=== PATIENT | female | born 1970 | race Caucasian/White ===

== ENCOUNTER 2021-01-24 13:08 | Outpatient (REF) | payer OTHER, SELFPAY ==
[2021-01-24 14:13] LABS: Basophils Percent Auto 0.6 % (0-2); Eosinophils Absolute Auto 0.3 X10*3/uL (0.0-0.4); Eosinophils Percent Auto 3.7 % (0-4); Hematocrit 38.6 % (37-47); Hemoglobin 12.1 g/dl (12.0-16.0); Imm Gran Abs Auto 0.02 X10*3/uL (0.00-0.03); Imm Gran Pct Auto 0.3 % (0.0-0.4); Lymphocytes Absolute Auto 2.6 X10*3/uL (1.2-4.9); Lymphocytes Percent Auto 37.8 % (20-40); MANUAL DIFF FLAG NO; Mean Corpuscular HGB Conc 31.3 g/dl (31.0-35.0); Mean Corpuscular Hemoglobin 30.1 pg (27.0-33.0); Mean Platelet Volume 10.8 fL (9.4-12.3); Monocytes Absolute Auto 0.5 X10*3/uL (0.1-1.2); Monocytes Percent Auto 6.8 % (2-11); Neutrophils Absolute Auto 3.4 X10*3/uL (2.0-8.3); Neutrophils Percent Auto 50.8 % (45-73); Platelet Count 238 X10*3/uL (160-400); Red Blood Count 4.02 X10*6/uL (4.20-5.50); Red Cell Distribution Width 12.7 % (11.0-16.0); White Blood Count 6.7 X10*3/uL (4.8-10.8)
== END 2021-01-24 13:09 | disposition home or self-care (01) ==
LOC: HO.LAB 13:08
PROVIDERS: PCP Family Medicine; Visit Provider Family Medicine
DX: D50.9 Iron deficiency anemia, unspecified (principal)
CPT/HCPCS: 36415; 85025

== ENCOUNTER 2021-08-29 14:00 | Outpatient (REF) | payer OTHER, SELFPAY ==
[2021-08-29 14:11] LABS: MANUAL DIFF FLAG NO
[2021-08-29 14:41] LABS: Basophils Percent Auto 0.6 % (0-2); Eosinophils Absolute Auto 0.3 X10*3/uL (0.0-0.4); Eosinophils Percent Auto 4.6 % (0-4); Hemoglobin 12.3 g/dl (12.0-16.0); Imm Gran Abs Auto 0.02 X10*3/uL (0.00-0.03); Imm Gran Pct Auto 0.3 % (0.0-0.4); Lymphocytes Absolute Auto 2.2 X10*3/uL (1.2-4.9); Lymphocytes Percent Auto 31.4 % (20-40); Mean Corpuscular HGB Conc 32.4 g/dl (31.0-35.0); Mean Corpuscular Hemoglobin 30.4 pg (27.0-33.0); Mean Corpuscular Volume 94.1 fL (80.0-98.0); Mean Platelet Volume 10.8 fL (9.4-12.3); Monocytes Absolute Auto 0.6 X10*3/uL (0.1-1.2); Neutrophils Absolute Auto 3.8 x10*3/uL (2.0-8.3); Neutrophils Percent Auto 54.1 % (45-73); Platelet Count 222 X10*3/uL (160-400); Red Blood Count 4.04 X10*6/uL (4.20-5.50); Red Cell Distribution Width 12.6 % (11.0-16.0); White Blood Count 7.1 X10*3/uL (4.8-10.8)
[2021-08-29 15:08] LABS: Alanine Aminotransferase 23 U/L (0-31); Blood Urea Nitrogen 15 mg/dL (9-16); Estimated Glomerular Filt Rate > 60
== END 2021-08-29 14:01 | disposition home or self-care (01) ==
LOC: HO.LAB 14:00
PROVIDERS: PCP Family Medicine; Visit Provider Family Medicine
DX: D64.9 Anemia, unspecified (principal); E66.9 Obesity, unspecified
CPT/HCPCS: 36415; 82565; 84460; 84520; 85025

== ENCOUNTER 2021-09-12 05:04 | Emergency (ER) | payer OTHER, SELFPAY ==
--- NOTE | ~2021-09-12 | XR_ITS ---
EXAMINATION: XR PORTABLE CHEST CLINICAL INFORMATION: Cough. Shortness of breath. COMPARISON: None. TECHNIQUE: AP portable portable view of the chest FINDINGS: Lungs are clear. No consolidation, pneumothorax, or pleural effusion. Cardiac and mediastinal contours are normal. Pulmonary vasculature is unremarkable. Osseous structures are unremarkable. XR/XR chest 1V IMPRESSION: No acute cardiopulmonary findings
[2021-09-12 05:19] VITALS: BP 115/52; PULSE 74; RESP 20; TEMP 37.1; O2SAT 97; BMI 33.8
--- NOTE | 2021-09-12 05:41 | ED.URI ---
HPI - URI/Sore Throat General Chief Complaint: Upper Respiratory Symptoms Stated Complaint: asthma, trouble breathing Time Seen by Provider: 09/12/21 05:29 Source: patient Mode of arrival: ambulatory Limitations: no limitations History of Present Illness HPI Narrative: Patient comes to the emergency room complaining of asthma exacerbations. Patient states she has been having fever over the last couple of days, increased cough, patient has been using her inhaler every 2 hours. Patient states that she used her inhaler 1 hour prior to arrival. Patient complaining of diffuse body aches and generalized malaise. Related Data Previous Rx's Medication Instructions Recorded prednisone 50 mg tablet 50 mg PO DAILY #4 tab 09/12/21 Allergies Allergy/AdvReac Type Severity Reaction Status Date / Time Vkguttfln-Jklmhtyf-Jdx Allergy Unknown Unknown Uncoded 09/12/21 05:18 Sudafed Allergy Unknown Unknown Uncoded 09/12/21 05:18 Review of Systems Review of Systems: Constitutional : No Weight loss, complaining of fever, chills, generalized malaise and fatigue ENT/Mouth : No Hearing loss, No Ear Pain, No Nasal Congestion, No Sinus Pain, No Hoarseness, No sore throat, No Rhinorrhea, No Swallowing Difficulty Eyes: No Eye Pain, No Swelling, No Redness, No Foreign Body, No Discharge, No Vision Changes Cardiovascular : No Chest Pain, No SOB, No Dyspnea on Exertion, No Orthopnea, No Edema, No Palpitations Respiratory : Complaining of Cough, No Sputum, complaining of frequent asthma exacerbations, Wheezing Gastrointestinal : No Nausea, No Vomiting, No Diarrhea, No Constipation, No abdominal Pain, No Hematochezia, No Melena Genitourinary : no irregular bleeding, No Dysuria, No Urinary Frequency, No Hematuria, No Urinary Incontinence, No Urgency, No Flank Pain, No Urinary Flow Changes, No Hesitancy Musculoskeletal : No joint pain, No Myalgias, No Joint Swelling Skin : No Skin Lesions, No rash Neuro : No Weakness, No Numbness, No Paresthesias, No Loss of Consciousness, No Dizziness, No Headache Psych : No Anxiety/Panic, No Depression, No SI/HI/AH/VH, No Social Issues, Heme/Lymph: No Bruising, No Bleeding,No Lymphadenopathy Endocrine : No Polyuria, No Polydipsia, No Temperature Intolerance PMFSH Past Medical History Medical History Asthma History of positive PPD Surgical History History of foot surgery Hx of hemorrhoidectomy Hx of tubal ligation [place] teeth extracted Social History Social History Advance Directives: No Advance Directives Information Provided: Yes Patient : No Physical Exam Vital Signs: Vital Signs: Last Vital Signs Temp 98.8 F 09/12/21 05:19 Pulse 74 09/12/21 05:19 Resp 20 09/12/21 05:19 BP 115/52 L 09/12/21 05:19 Pulse Ox 97 09/12/21 05:19 Body Mass Index 33.8 Const: Other: Appearance: Alert. Oriented X3. No acute distress. Eyes: Pupils equal, round and reactive to light. ENT: Pharynx normal. Neck: Normal inspection. Neck supple. No lymph nodes noted. No crepitus CVS: Normal heart rate and rhythm. Pulses normal. Normal S1 and S2 Respiratory: No respiratory distress. Breath sounds normal. No Wheezing. No rales Abdomen: Soft and nontender. No rigidity. No distention. Skin: Skin warm and dry. Normal skin color. Normal skin turgor. Extremities: No lower extremity edema. No Lacerations. No Rash Neuro: Oriented X 3. No motor deficit. No sensory deficit. Moving all extermities. No slurred speech. Course Course Course Narrative: Patient was ambulated in the emergency room, oxygen saturation remained above 95% on room air, patient has no wheezing, no shortness of breath or chest pain. Patient received 1 IM dose of Solu-Medrol. No breathing treatments since patient was not wheezing and oxygen saturation was 98% on room air. Chest x-ray does not show any acute abnormalities, radiology report pending. And is being discharged MDM - URI/Sore Throat Lab Data Labs: Lab Results 09/12/21 Range/Units 05:30 Influenza Type A (PCR) NEGATIVE (Negative) Influenza Type B (PCR) NEGATIVE (Negative) RSV RNA Qual (PCR) NEGATIVE (Negative) SARS-CoV-2 RNA (RT-PCR) NEGATIVE (Negative) Discharge Plan Discharge Clinical Impression: Asthma Qualifiers: Asthma severity: unspecified severity Asthma persistence: unspecified Asthma complication type: unspecified Qualified Code(s): J45.909 - Unspecified asthma, uncomplicated Patient Disposition: Home, Self-Care Instructions: Asthma (ED) Additional Instructions: Please follow-up with your primary care physician tomorrow. If you have any worsening or new symptoms, please return to the emergency room or call 911 Prescriptions: New prednisone 50 mg tablet 50 mg PO DAILY Qty: 4 RF: 0
[2021-09-12] MEDS: methylPREDNISolone Sod Succ 125 MG/2 ML VIAL 60 MG IM (05:59)
[2021-09-12 06:13] LABS: Influenza A PCR NEGATIVE (Negative); Influenza B PCR NEGATIVE (Negative); Resp Syncy Virus RNA Qual PCR NEGATIVE (Negative); SARS COV2 PCR INHOUSE NEGATIVE (Negative)
== END 2021-09-12 07:24 | disposition home or self-care (01) ==
PROVIDERS: Emergency Provider Emergency Medicine
DX: J45.909 Unspecified asthma, uncomplicated (principal); Z20.822 Contact with and (suspected) exposure to COVID-19; M79.10 Myalgia, unspecified site
CPT/HCPCS: 0241U; 36415; 71045; 96372; 99283; 99284; J2930

== ENCOUNTER 2021-10-19 09:10 | Day surgery (SDC) | payer OTHER, SELFPAY ==
--- NOTE | 2021-09-14 08:53 | HO.ANESPROP2 ---
HPI - Anesthesia Eval Consult details Narrative: 51yo F for Colonoscopy PMFSH Past Medical History Medical History Asthma History of positive PPD Surgical History Surgical History History of foot surgery Hx of hemorrhoidectomy Hx of tubal ligation [place] teeth extracted Social History Social History Advance Directives: No Advance Directives Information Provided: Yes Patient : No Meds Allergies Allergy/AdvReac Type Severity Reaction Status Date / Time Lxprhclnk-Wmuclous-Vpf Allergy Unknown Unknown Uncoded 09/12/21 05:18 Sudafed Allergy Unknown Unknown Uncoded 09/12/21 05:18 Exam Exam Date and Time: September 14, 2021 0853 Pertinent Lab Results Pertinent Lab Results: Laboratory Tests 06/10/19 08/29/21 08/29/21 13:01 14:09 14:09 WBC 7.1 Hgb 12.3 Hct 38.0 Plt Count 222 Sodium 137 Potassium 4.0 Chloride 105 BUN 15 Creatinine 0.77 Narrative Narrative: XR chest 1V 08/2021 IMPRESSION: No acute cardiopulmonary findings Assessment and Plan Assessment Anesthesia Assessment: Chart Reviewed
[2021-10-04 11:25] VITALS: BMI 33.7
[2021-10-19 09:38] VITALS: BP 119/79; PULSE 75; RESP 16; TEMP 36.6; O2SAT 95
--- NOTE | 2021-10-19 09:44 | P.CONAN_ITS ---
[facility] Past Medical History Medical History Asthma History of positive PPD IBS (irritable bowel syndrome) Seasonal allergies Surgical History Surgical History History of foot surgery Hx of hemorrhoidectomy Hx of tubal ligation [place] teeth extracted History of Problems with Anesthesia: No Social History Social History Patient Tobacco Use Status: Never used Tobacco Use of substances other than those prescribed or required for medical reasons: No Are you DNR?: No Advance Directives: No Advance Directives Information Provided: Yes Advance Directives on File: No Recently lost weight without trying: No Patient : No FDLMP: 09/29/2021 : No Poor oral hygiene: No Meds Allergies Allergy/AdvReac Type Severity Reaction Status Date / Time latex Allergy Intermediate Rash Verified 10/04/21 14:25 Iawgziora-Mxjhhdso-Ded Allergy Intermediate Shakiness Uncoded 10/04/21 14:25 Sudafed Allergy Intermediate Shakiness Uncoded 10/04/21 14:25 Active Medications: Current Medications Sodium Biphosphate/Sodium Phosphate (Sodium Phosphate,[place]-Dibasic 133 Ml Enema) 133 ml [place] ONCE PRN PRN Reason: Poor Colonoscopy Prep Results Home Medications Medication Instructions Recorded Confirmed Last Taken Type Flovent 10/04/21 10/04/21 Unknown History loratadine 10 mg tablet (Claritin) 10 mg PO DAILY 10/04/21 10/04/21 Unknown History omeprazole 40 mg capsule,delayed 1 cap PO QPM 10/04/21 10/04/21 Unknown History release Exam Exam Date and Time: October 19, 2021 0944 Height,Weight and Vital Signs: Height 5 ft 4 in Weight 89.358 kg Last Vital Signs Temp 97.8 F 10/19/21 09:38 Pulse 75 10/19/21 09:38 Resp 16 10/19/21 09:38 BP 119/79 10/19/21 09:38 Pulse Ox 95 10/19/21 09:38 Airway Mallampati Class: II TM Dist: >3cm Neck ROM: Full Loose/Missing/Broken Teeth: No Heart: RRR Lungs: CTA Assessment and Plan Assessment Anesthesia Assessment: Anesthesia Plan Discussed and Chart Reviewed Final Anesthetic Review History of Problems with Anesthesia: No NPO: Yes ASA Class: II Final Preanesthetic Review: Meds/Allgs Chart Reviewed, Consent Obtained/Reviewed and Anes Risks/Benef Reviewed Patient Risk: Low Procedure Risk: Low Anesthetic Plan Anesthetic Plan: MAC: Disposition: Standard PACU
[2021-10-19] MEDS: Lactated Ringers 1,000 ML 50 ML IVCONT (10:33)
[2021-10-19 11:21] VITALS: BP 102/64; PULSE 67; RESP 18; TEMP 36.6; O2SAT 97
--- NOTE | 2021-10-19 11:24 | P.BOP_ITS ---
Brief Operative Note Date of Service: 10/19/21 Pre-op diagnosis: Screening Post-op diagnosis: other (Mild sigmoid diverticulosis, Internal hemorrhoids) Procedure: Colonoscopy to the cecum and TI Surgeon: Art Alvares Anesthesia: MAC Was an [employer] used for this Procedure?: No Estimated blood loss (mL): 0 Pathology: none sent Condition: stable Disposition: PACU
[2021-10-19 11:36] VITALS: BP 107/60; PULSE 60; RESP 16; O2SAT 97
[2021-10-19 11:46] VITALS: BP 115/77; PULSE 63; RESP 16; TEMP 36.6; O2SAT 98
--- NOTE | 2021-10-19 12:16 | OP_ITS ---
SURGEON: Art Alvares MD INDICATIONS: The patient presents for evaluation of colorectal cancer screening. Full consent has been obtained from her for this, including risks of bleeding and perforation. PREOPERATIVE DIAGNOSIS: Colorectal cancer screening. POSTOPERATIVE DIAGNOSIS: PROCEDURE PERFORMED: Colonoscopy of the cecum and terminal ileum. ESTIMATED BLOOD LOSS: COMPLICATIONS: ANESTHESIA: Monitored anesthesia care. ASSISTANTS: SPECIMENS: POSTOPERATIVE DIAGNOSES: Colorectal cancer screening, mild sigmoid diverticulosis, and internal hemorrhoids. DESCRIPTION OF PROCEDURE: The patient was placed in the left lateral decubitus position. The digital rectal exam revealed no abnormalities. The Olympus video pediatric colonoscope was entered into the rectum and advanced easily to the cecum. Once in the cecum, I did identify normal-appearing cecal pouch with appendiceal orifice and a normal-appearing ileocecal valve. The terminal ileum was cannulated and appeared normal. The scope was withdrawn back in the colon. The entire cecum and ileocecal valve appeared normal. The scope was slowly withdrawn assessing all mucosal surfaces carefully. Preparation was excellent. I did not visualize any sign of polyps, colitis, or angiodysplasia. There were occasional diverticula noted in the sigmoid colon. In the rectum, scope was retroflexed visualizing internal hemorrhoids, but no other pathology. The rectal mucosa appeared normal. The scope was straightened and withdrawn from the patient. She tolerated the procedure well and was returned to the recovery area in stable condition. IMPRESSION: 1. Mild sigmoid diverticulosis. 2. Internal hemorrhoids. PLAN: Given the patient's negative colonoscopy and no family history of colorectal cancer, I would recommend a repeat colonoscopy in 10 years for further screening. She will otherwise see me on a p.r.n. basis. Art Alvares MD RMLeif/BETTY / [id number]
== END 2021-10-19 12:09 | disposition home or self-care (01) ==
PROVIDERS: Visit Provider Internal Medicine
PROC: 0DJD8ZZ Inspection of Lower Intestinal Tract, Via Natural or Artificial Opening Endoscopic (ICD-10-PCS; CPT 45378; principal; 2021-10-19 10:10)
DX: Z12.11 Encounter for screening for malignant neoplasm of colon (principal); K57.30 Diverticulosis of large intestine without perforation or abscess without bleeding; K64.8 Other hemorrhoids; K58.2 Mixed irritable bowel syndrome; J30.2 Other seasonal allergic rhinitis; R32 Unspecified urinary incontinence; Z79.899 Other long term (current) drug therapy
CPT/HCPCS: 45378

== ENCOUNTER 2025-09-07 22:05 | Emergency (ER) | payer OTHER, SELFPAY ==
--- NOTE | ~2025-09-07 | XR_ITS ---
CLINICAL HISTORY: sob 1 view chest x-ray Comparison: None provided Findings: Lungs are clear without acute infiltrates. No pneumothorax. Heart size normal. No acute bony abnormalities. Impression: No acute processes This document has been electronically signed by: Jagdish Shine MD on 09/07/2025 23:19:50
[2025-09-07 22:15] VITALS: BP 160/70; PULSE 108; RESP 24; TEMP 39; O2SAT 95; BMI 30.4
[2025-09-07 22:42] LABS: MANUAL DIFF FLAG NO
[2025-09-07 22:43] LABS: Hematocrit 34.0 % (37.0-47.0); Hemoglobin 10.9 g/dl (12.0-16.0); Imm Gran Abs Auto 0.02 X10*3/uL (0.00-0.03); Imm Gran Pct Auto 0.2 % (0.0-0.4); Lymphocytes Absolute Auto 0.7 X10*3/uL (1.2-4.9); Mean Corpuscular HGB Conc 32.1 g/dl (31.0-35.0); Mean Corpuscular Hemoglobin 29.9 pg (27.0-33.0); Mean Corpuscular Volume 93.4 fL (80.0-98.0); NRBC Abs Auto 0.000 X10*3/uL (0.0-0.012); NRBC Pct Auto 0.0 /100WBC (0.0-0.2); Platelet Count 186 X10*3/uL (160-400); Red Blood Count 3.64 X10*6/uL (4.20-5.50); White Blood Count 8.1 X10*3/uL (4.8-10.8)
[2025-09-07 22:51] LABS: IDNOW Serial# 6674DD1D; Strep A Nucleic Acid Negative (Negative)
[2025-09-07 22:59] LABS: Alanine Aminotransferase 47 U/L (0-31); Albumin Level 4.6 g/dL (3.5-5.0); Alkaline Phosphatase 104 U/L (39-117); Anion Gap 14 (12-20); Aspartate Amino Transferase 43 U/L (5-31); Blood Urea Nitrogen 20 mg/dL (9-16); Calcium 9.7 mg/dL (8.4-10.2); Carbon Dioxide 23 mmol/L (22-29); Chloride 108 mmol/L (96-108); Creatinine Clr Calc Pharmacy 92.4; Estimated Glomerular Filt Rate > 60; Potassium 3.8 mmol/L (3.3-5.1); Sodium 141 mmol/L (135-145); Total Protein 7.6 g/dL (6.5-8.0)
--- NOTE | 2025-09-07 23:06 | MHC.EDTECH ---
@23:06 Per RN hold off on drawing 2nd set off [employer]
[2025-09-07 23:08] VITALS: BP 146/85; PULSE 106; RESP 20; TEMP 39.4; O2SAT 96
[2025-09-07 23:20] LABS: Resp Syncy Virus RNA Qual PCR NEGATIVE (Negative); SARS COV2 PCR INHOUSE NEGATIVE (Negative)
--- NOTE | 2025-09-08 00:14 | ED.GENADULT ---
HPI - General Adult General Chief complaint: General Medical Stated complaint: General Medical Time Seen by Provider: 09/07/25 22:55 Source: patient and family Mode of arrival: ambulatory Limitations: no limitations History of Present Illness ED Provider: Dr. Joanna Nino HPI narrative: 55-year-old female with history of CVA on aspirin and Plavix presenting with reported fevers that began immediately prior to arrival. Patient had been feeling well earlier in the day though she has been around multiple other sick children throughout the day. Other people are sick with upper respiratory infection type symptoms. Patient denies having any significant cough or sinus congestion. She does have seasonal allergies and takes allergy medications for this. Temperature as high as 103?. Admits to associated headache but no vision changes or neck stiffness. No skin rashes. Cough is dry. Patient admits that she was recently diagnosed with a kidney stone in [place] but can not remember if she has passed it or not. She has no urinary symptoms today. Related Data Home Medications ?Medication ?Instructions ?Recorded ?Confirmed Flovent 10/04/21 10/04/21 loratadine 10 mg tablet (Claritin) 10 mg PO DAILY 10/04/21 10/04/21 omeprazole 40 mg capsule,delayed 1 cap PO QPM 10/04/21 10/04/21 release Previous Rx's ?Medication ?Instructions ?Recorded albuterol sulfate 90 mcg/actuation 2 puff inhalation Q4-6H PRN 09/12/21 aerosol inhaler shortness of breath or wheezing #6.7 grams prednisone 50 mg tablet 50 mg PO DAILY #4 tabs 09/12/21 cephalexin 500 mg capsule 500 mg PO QID 7 days #28 caps 09/08/25 ondansetron 4 mg disintegrating 4 mg PO Q8H PRN nausea and 09/08/25 tablet vomiting #10 tabs Allergies Allergy/AdvReac Type Severity Reaction Status Date / Time latex Allergy Intermediate Rash Verified 09/07/25 22:21 Uwhiesevt-Qzzsvrnh-Nme Allergy Intermediate Shakiness Uncoded 10/04/21 14:25 Sudafed Allergy Intermediate Shakiness Uncoded 10/04/21 14:25 PMFSH Past Medical History Medical History Asthma History of positive PPD IBS (irritable bowel syndrome) Seasonal allergies Surgical History History of foot surgery Hx of hemorrhoidectomy Hx of tubal ligation [place] teeth extracted Social History Social History Patient Tobacco Use Status: Never used Tobacco Smoked in Last 30 Days: Yes Use of substances other than those prescribed or required for medical reasons: No Advance Directives: No Advance Directives Information Provided: No Do you have a plan to hurt others: No Plan Patient : No Physical Exam ED Exam Exam: GENERAL: Ill-Appearing, appears uncomfortable. SKIN: Normal skin color for ethnicity, warm, dry, no rashes noted. HEENT:? Normocephalic, atraumatic, no stridor, dry mucous membranes, dentition intact, EOMI. NECK: Soft, supple, full ROM, midline structures nontender, no step-offs, no deformities, no lymphadenopathy. CHEST: Heart regular tachycardia, no murmurs, symmetric chest rise and fall. PULMONARY: Clear to auscultation bilaterally, diminished at the bases, no labored breathing, no wheezes/rhales/rhonchi. ABDOMINAL: Soft, nondistended, nontender, positive bowel sounds in all quadrants. : Deferred. MUSCULOSKELETAL: Normal tone, full range of motion, no deformities, no peripheral edema. NEURO: Alert and oriented x3, CN II through XII intact, equal strength and sensation bilateral upper and lower extremities, no focal neurologic deficits.? PSYCHIATRIC: Flat affect, fluid speech, good eye contact and appropriate demeanor. Vital Signs: Vital Signs - 24 hr 09/07/25 22:15 09/07/25 23:08 09/08/25 00:57 Temperature 102.2 F H 103 F H 99.4 F Pulse Rate 108 H 106 H 102 H Respiratory Rate 24 H 20 20 Blood Pressure 160/70 H 146/85 H 137/66 Pulse Oximetry 95 96 95 Oxygen Delivery Method Room Air 09/08/25 01:03 Temperature 99.4 F Pulse Rate 99 Respiratory Rate 20 Blood Pressure Pulse Oximetry Oxygen Delivery Method BMI result Body Mass Index 30.4 Medications Administered Discontinued Medications Generic Name Dose Route Start Last Admin Trade Name Freq PRN Reason Stop Dose Admin Acetaminophen 975 mg 09/07/25 23:18 09/07/25 23:21 Acetaminophen 325 Mg Tablet PO 09/07/25 23:19 975 mg ONCE ONE Administration Oxycodone HCl 5 mg 09/08/25 00:30 09/08/25 01:04 Oxycodone Hcl Immed Release 5 Mg Tablet PO 09/08/25 00:31 5 mg ONCE ONE Administration Medical Decision Making Medical Decision Making [facility] Narrative: Patient presents with complaints of fever. Differential diagnosis is incredibly broad but SBI, meningitis, sepsis, serious skin infection, pyelonephritis, UTI, pneumonia or other emergent etiologies certainly considered.? Less emergent diagnoses such as viral infection also considered.? This patient is non toxic appearing. No evidence of meningitis on exam. No significant elevation of white blood cell count or evidence of bandemia. She is defervescing appropriately after Tylenol. Headache improved with oxycodone. Urinalysis is positive for infection. We will treat with Keflex. Discussed importance of follow up as well as strict return precautions with the patient. She understands and agrees with plan for discharge. Discharged home in stable condition. Differential Diagnosis Differential Diagnoses: The differential diagnosis associated with the presentation includes Admission/Observation Consideration of admission/observation: Escalation of care including admission/observation considered Lab Data [facility] Lab Attestation statement: I reviewed the patient's lab results. 09/07/25 22:34 09/07/25 22:34 Labs: Lab Results 09/07/25 09/08/25 Range/Units 22:34 01:01 WBC 8.1 (4.8-10.8) X10*3/uL RBC 3.64 L (4.20-5.50) X10*6/uL Hgb 10.9 L (12.0-16.0) g/dl Hct 34.0 L (37.0-47.0) % MCV 93.4 (80.0-98.0) fL MCH 29.9 (27.0-33.0) pg MCHC 32.1 (31.0-35.0) g/dl RDW 12.5 (11.0-16.0) % Plt Count 186 (160-400) X10*3/uL MPV 9.8 (9.4-12.3) fL Immature Gran % (Auto) 0.2 (0.0-0.4) % Neut % (Auto) 87.6 H (45-73) % Lymph % (Auto) 9.1 L (20-40) % [place] % (Auto) 1.4 L (2-11) % Eos % (Auto) 1.5 (0-4) % Baso % (Auto) 0.2 (0-2) % Lymph # (Auto) 0.7 L (1.2-4.9) X10*3/uL [place] # (Auto) 0.1 (0.1-1.2) X10*3/uL Eos # (Auto) 0.1 (0.0-0.4) X10*3/uL Baso # (Auto) 0.0 (0.0-0.2) X10*3/uL Abs Immat Gran (auto) 0.02 (0.00-0.03) X10*3/uL Absolute Neuts (auto) 7.1 (2.0-8.3) x10*3/uL Absolute Nucleated RBC 0.000 (0.0-0.012) X10*3/uL Nucleated RBC % (auto) 0.0 (0.0-0.2) /100WBC Sodium 141 (135-145) mmol/L Potassium 3.8 (3.3-5.1) mmol/L Chloride 108 (96-108) mmol/L Carbon Dioxide 23 (22-29) mmol/L Anion Gap 14 (12-20) BUN 20 H (9-16) mg/dL Creatinine 0.82 (0.5-1.4) mg/dL Estim Creat Clear Calc 92.4 Estimated GFR > 60 Random Glucose 121 H (60-115) mg/dL Lactic Acid 1.2 (0.5-2.0) mmol/L Calcium 9.7 (8.4-10.2) mg/dL Total Bilirubin 0.8 (0.0-1.0) mg/dL AST 43 H (5-31) U/L ALT 47 H (0-31) U/L Alkaline Phosphatase 104 (39-117) U/L Total Protein 7.6 (6.5-8.0) g/dL Albumin 4.6 (3.5-5.0) g/dL Urine Color Yellow Urine Appearance Clear Urine pH 5.0 (5.0-9.0) Ur Specific [place] 1.015 (1.005-1.025) Urine Protein Negative (Neg-Trace) mg/dL Urine Glucose (UA) Negative (Negative) mg/dL Urine Ketones Negative (Negative) mg/dL Urine Blood Trace H (Negative) Urine Nitrite Positive H (Negative) Ur Leukocyte Esterase Moderate (2+) H (Negative) Urine RBC 0-2 (0-2) /HPF Urine WBC 21-50 H (0-5) /HPF Ur Squamous Epith Cells 0-2 (0-2) /HPF Urine Bacteria 4+ (None Seen) Hyaline Casts 0-2 (0-2) /LPF Influenza Type A (PCR) NEGATIVE (Negative) Influenza Type B (PCR) NEGATIVE (Negative) RSV RNA Qual (PCR) NEGATIVE (Negative) SARS-CoV-2 RNA (RT-PCR) NEGATIVE (Negative) S. pyogenes GrpA BRYCE Negative (Negative) Independent Interpretation Interpretation: My independent interpretation of the chest x-ray reveals no consolidations, pulmonary edema, pleural effusion, pneumothorax, obvious bony abnormalities. Radiology Impression Discussion of test interpretation with radiology: I have reviewed the radiologist's reading. Independent Historian Clinical information obtained from an independent historian. History obtained from or confirmed by: Spouse External Record Review External record reviewed: Inpatient record Prescription Management I considered prescription management with: Antibiotic Chronic Conditions Patient?s care impacted by: Other (CVA) Discharge Plan Discharge Clinical Impression: Acute febrile illness, UTI (urinary tract infection) Patient Disposition: Home, Self-Care Instructions: Urinary Tract Infection in Women (ED), Fever in Adults (ED) Additional Instructions: Take your antibiotic as prescribed until the course is completed. Do not stop this medication early if you start to feel better. Return to the emergency department with any new or worsening symptoms including: Worsening pain, fevers greater than 100? despite antibiotic treatment, vomiting, or any new symptom that concerns you. Call 911 with any medical emergency. Prescriptions: New cephalexin 500 mg capsule 500 mg PO QID 7 Days Qty: 28 0RF ondansetron 4 mg tablet,disintegrating 4 mg PO Q8H PRN (Reason: nausea and vomiting) Qty: 10 0RF No Action prednisone 50 mg tablet 50 mg PO DAILY Qty: 4 0RF albuterol sulfate 90 mcg/actuation HFA aerosol inhaler 2 puff inhalation Q4-6H PRN (Reason: shortness of breath or wheezing) Qty: 6.7 0RF omeprazole 40 mg capsule,delayed release(DR/EC) 1 cap PO QPM loratadine [Claritin] 10 mg Tablet 10 mg PO DAILY Flovent Print Language: Bulgarian
[2025-09-08 00:57] VITALS: BP 137/66; PULSE 102; RESP 20; TEMP 37.4; O2SAT 95
[2025-09-08 01:03] VITALS: PULSE 99; RESP 20; TEMP 37.4
[2025-09-08] MEDS: oxyCODONE HCl Immed Release 5 MG TABLET PO (01:04)
[2025-09-08 01:17] LABS: Appearance Urine Clear; Glucose Urine UA Negative (Negative); PH 5.0 (5.0-9.0); Specific Gravity - Urine 1.015 (1.005-1.025); UMIC TRIGGER UACC YES
[2025-09-08 01:22] LABS: UACC Culture Trigger YES
[2025-09-08 02:16] VITALS: BP 137/66; PULSE 99; RESP 20; TEMP 37.4; O2SAT 94
== END 2025-09-08 02:17 | disposition home or self-care (01) ==
PROVIDERS: Emergency Provider Emergency Medicine
DX: N39.0 Urinary tract infection, site not specified (principal); R50.9 Fever, unspecified; Z03.818 Encounter for observation for suspected exposure to other biological agents ruled out; R06.02 Shortness of breath; J45.909 Unspecified asthma, uncomplicated
CPT/HCPCS: 36415; 71045; 80053; 81001; 83605; 85025; 87040; 87077; 87086; 87088; 87186; 87205; 87637; 87651; 99283; 99284

== ENCOUNTER → 2025-09-07 22:45 | Outpatient (BNV) | payer OTHER, SELFPAY | PROVIDERS: Emergency Provider Emergency Medicine; Visit Provider Radiology Diagnostic Radiology | DX: R06.02 Shortness of breath (principal) | CPT/HCPCS: 71045 ==

== ENCOUNTER 2025-09-08 11:14 | Inpatient (IN) | payer MEDICAID, SELFPAY ==
--- NOTE | ~2025-09-08 | CT_ITS ---
EXAMINATION: CT ABDOMEN AND PELVIS WITHOUT CONTRAST CLINICAL INFORMATION: Right flank pain COMPARISON: June 02, 2014. TECHNIQUE: Multidetector volumetric imaging was performed from the superior aspect of the liver through the pubic symphysis. Sagittal and coronal reformatted images were obtained on the technologist's workstation. This CT examination was performed using dose optimization techniques as appropriate, variously including the following: *Automated exposure control *Adjustment of mA and/or kV according to patient size (this includes techniques or standardized protocols for targeted exams where dose is matched to indication/reason for exam; i.e. extremities or head) *Use of iterative reconstruction technique DLP: 680 mGy-cm FINDINGS: Inadequate evaluation of the intra-abdominal organs and vascular structures due to lack of IV contrast. LUNG BASES: No acute airspace disease or discrete pulmonary nodules. LIVER, GALLBLADDER, AND BILIARY TREE: Liver measures 15 cm. There is a subtle 2 cm hypodensity in the dome right hepatic lobe. Gallbladder is nondistended. No pericholecystic fluid collection or gallbladder wall thickening. No intrahepatic or extrahepatic biliary ductal dilatation. PANCREAS: No peripancreatic fluid collections. SPLEEN: 10 cm. ADRENAL GLANDS: No nodular lesions KIDNEYS AND URETERS: No hydronephrosis. Less than 1 mm calculi in both pelvicalyceal systems. No dilatation of the ureters. BLADDER: Fluid-filled. GASTROINTESTINAL TRACT: Appendix is normal. No intestinal obstruction pattern. No pneumatosis intestinalis. No pneumoperitoneum. No ascites. Redundant sigmoid colon. Abundant food contents in the stomach. ABDOMINAL WALL: No gross hernia, umbilical. LYMPH NODES: Prominent, inguinal, periceliac, retroperitoneum and mesentery, nonspecific. VASCULAR: Small calcified plaques. No aneurysm, aorta. PELVIC VISCERA: Inadequate evaluation with heterogeneous nodular morphology pattern and question subserosal 2 cm fibroid to the right of the pelvis. Probable status post tubal ligation.. OSSEOUS STRUCTURES: Multilevel thoracolumbar spondylosis pronounced at L4-5 and to a lesser extent L5-S1. Sclerosis and the sacroiliac joints. Degenerative changes, mild to moderate both coxofemoral joints. CT/CT abdomen pelvis wo IV con IMPRESSION: Bilateral nonobstructing nephrolithiasis. Probable uterine fibroids. Nonspecific prominent lymph nodes. Spondylosis, L4-5 and L5-S1.. Fleischner guidelines were followed. Electronically signed by: Luc Pierce MD 09/08/2025 01:03 PM [facility]
[2025-09-08 11:21] VITALS: BP 113/65; PULSE 77; RESP 18; TEMP 36.8; O2SAT 97; BMI 34.3
--- NOTE | 2025-09-08 11:27 | ED.GENADULT ---
HPI - General Adult General Chief complaint: General Medical Stated complaint: Urinary Symptoms Time Seen by Provider: 09/08/25 11:18 Source: patient and old records reviewed Mode of arrival: ambulatory Limitations: no limitations History of Present Illness ED Provider: ALBERT CALDERON narrative: 55-year-old female with past medical history of asthma, GERD, August 22 was seen for left-sided renal colic in [place] but no procedures were done. She is here traveling as she lives in [place] and was visiting family in [place]. who was just seen and treated in our facility with cephalexin for positive UTI. She had presented with fevers/rigors up to 103. Her urine was grossly positive. She also had chest x-ray that was normal. She does have right flank pain as well as urinary symptoms. I called her after I was notified by the lab that she had 10/22 gram negative rods. I instructed her to return for IV antibiotics and admission to the hospital. She was supposed to fly back to [place] at 14:30 today. She notes she started to develop right flank pain as well. She has not had a fever this morning. She did take her Keflex and at 10:00. complaint: Positive blood culture Onset (ago): day(s) (One) Location: right Radiation: non-radiation Severity: moderate Quality: aching Pain Consistency: constant Relieving factors: none Exacerbating factors: none Associated symptoms: malaise Treatments prior to arrival: other Related Data Home Medications ?Medication ?Instructions ?Recorded ?Confirmed Flovent 10/04/21 10/04/21 loratadine 10 mg tablet (Claritin) 10 mg PO DAILY 10/04/21 10/04/21 omeprazole 40 mg capsule,delayed 1 cap PO QPM 10/04/21 10/04/21 release Previous Rx's ?Medication ?Instructions ?Recorded albuterol sulfate 90 mcg/actuation 2 puff inhalation Q4-6H PRN 09/12/21 aerosol inhaler shortness of breath or wheezing #6.7 grams prednisone 50 mg tablet 50 mg PO DAILY #4 tabs 09/12/21 cephalexin 500 mg capsule 500 mg PO QID 7 days #28 caps 09/08/25 ondansetron 4 mg disintegrating 4 mg PO Q8H PRN nausea and 09/08/25 tablet vomiting #10 tabs Allergies Allergy/AdvReac Type Severity Reaction Status Date / Time latex Allergy Intermediate Rash Verified 09/08/25 11:24 Btzzlskpf-Miwpkglo-Nol Allergy Intermediate Shakiness Uncoded 09/08/25 11:24 Sudafed Allergy Intermediate Shakiness Uncoded 09/08/25 11:24 Review of Systems Review of Systems: Constitutional : Positive Fever, No Chills, positive Fatigue ENT/Mouth : No sore throat, No Rhinorrhea Eyes: No Eye Pain, No Swelling, No Redness Cardiovascular : No Chest Pain, No SOB, No Dyspnea on Exertion Respiratory : No Cough, No Sputum Gastrointestinal : No Nausea, No Vomiting, No Diarrhea, No abdominal Pain, positive flank pain Genitourinary : Positive Dysuria, positive Urinary Frequency, No Hematuria, Musculoskeletal : No joint pain, No Myalgias, No Joint Swelling Skin : No Skin Lesions, No rash All other systems reviewed and are negative [facility] Past Medical History Attestation statement: The following information was validated with the patient. Source: old records reviewed Medical History Seasonal allergies IBS (irritable bowel syndrome) History of positive PPD Asthma Surgical History History of foot surgery [place] teeth extracted Hx of hemorrhoidectomy Hx of tubal ligation Social History Social History Patient Tobacco Use Status: Never used Tobacco Advance Directives: No Advance Directives Information Provided: Yes Do you have a plan to hurt others: No Plan Physical Exam ED Vital Signs: Vital Signs - 24 hr 09/08/25 11:21 Temperature 98.3 F Pulse Rate 77 Respiratory Rate 18 Blood Pressure 113/65 Pulse Oximetry 97 Oxygen Delivery Method Room Air BMI result Body Mass Index 34.3 Appearance: Alert. Oriented X3. No acute distress. Eyes: Pupils equal, round and reactive to light. ENT: Pharynx normal. Neck: Normal inspection. Neck supple. CVS: Normal heart rate and rhythm. Pulses normal. Respiratory: No respiratory distress. Breath sounds normal. Abdomen: Soft and nontender. Skin: Skin warm and dry. Normal skin color. Normal skin turgor. Extremities: No lower extremity edema. No calf ttp Neuro: Oriented X 3. No motor deficit. No sensory deficit. CN2-12 intact Medications Administered Discontinued Medications Generic Name Dose Route Start Last Admin Trade Name Jose PRN Reason Stop Dose Admin Ceftriaxone Sodium 2 gm/ 50 mls @ 100 mls/hr 09/08/25 11:19 09/08/25 12:43 Sodium Chloride IV 09/08/25 11:48 Infused ONCE ONE Infusion Ketorolac Tromethamine 15 mg 09/08/25 12:23 09/08/25 12:55 Ketorolac Tromethamine 15 Mg/Ml Vial IVPUSH 09/08/25 12:24 15 mg ONCE ONE Administration Medical Decision Making Medical Decision Making [facility] Narrative: 55-year-old female with past medical history of asthma, GERD, August 22 was seen for left-sided renal colic in [place] who presents with Gram-negative rods in blood culture after visit yesterday. She has also developed right-sided flank pain with history of renal colic and past so that was on the left side. At this time I have repeated labs, including cultures, we will order CT scan for renal colic. I have started her on 2 g IV ceftriaxone. I plan to admit to the hospital given bacteremia. The family did ask that I write a letter that she is unable to travel which I have already handed to her spouse. Differential Diagnosis Differential Diagnoses: The differential diagnosis associated with the presentation includes Renal colic, UTI, bacteremia Admission/Observation Consideration of admission/observation: Escalation of care including admission/observation considered Given positive blood cultures will admit overnight for culture surveillance and IV antibiotic Consult Healthcare Provider Management of the patient was discussed with: Hospitalist (Will admit) Lab Data [facility] Lab Attestation statement: I reviewed the patient's lab results. 09/08/25 11:45 09/08/25 11:45 Labs: Lab Results 09/08/25 Range/Units 11:45 WBC 11.3 H (4.8-10.8) X10*3/uL RBC 3.61 L (4.20-5.50) X10*6/uL Hgb 10.9 L (12.0-16.0) g/dl Hct 33.6 L (37.0-47.0) % MCV 93.1 (80.0-98.0) fL MCH 30.2 (27.0-33.0) pg MCHC 32.4 (31.0-35.0) g/dl RDW 12.8 (11.0-16.0) % Plt Count 218 (160-400) X10*3/uL MPV 10.4 (9.4-12.3) fL Immature Gran % (Auto) 0.3 (0.0-0.4) % Neut % (Auto) 74.9 H (45-73) % Lymph % (Auto) 17.4 L (20-40) % Pope % (Auto) 5.8 (2-11) % Eos % (Auto) 1.2 (0-4) % Baso % (Auto) 0.4 (0-2) % Lymph # (Auto) 2.0 (1.2-4.9) X10*3/uL Pope # (Auto) 0.7 (0.1-1.2) X10*3/uL Eos # (Auto) 0.1 (0.0-0.4) X10*3/uL Baso # (Auto) 0.1 (0.0-0.2) X10*3/uL Abs Immat Gran (auto) 0.03 (0.00-0.03) X10*3/uL Absolute Neuts (auto) 8.5 H (2.0-8.3) x10*3/uL Absolute Nucleated RBC 0.000 (0.0-0.012) X10*3/uL Nucleated RBC % (auto) 0.0 (0.0-0.2) /100WBC Sodium 138 (135-145) mmol/L Potassium 3.4 (3.3-5.1) mmol/L Chloride 109 H (96-108) mmol/L Carbon Dioxide 23 (22-29) mmol/L Anion Gap 9 L (12-20) BUN 15 (9-16) mg/dL Creatinine 0.63 (0.5-1.4) mg/dL Estim Creat Clear Calc 111.4 Estimated GFR > 60 Random Glucose 133 H (60-115) mg/dL Lactic Acid 1.1 (0.5-2.0) mmol/L Calcium 10.1 (8.4-10.2) mg/dL Magnesium 1.6 (1.6-2.6) mg/dL Total Bilirubin 1.4 H (0.0-1.0) mg/dL Direct Bilirubin 0.4 (0.0-0.5) mg/dL AST 57 H (5-31) U/L ALT 47 H (0-31) U/L Alkaline Phosphatase 99 (39-117) U/L Total Protein 7.3 (6.5-8.0) g/dL Albumin 4.4 (3.5-5.0) g/dL Independent Interpretation I performed an independent interpretation of an: CT Scan (No obstructing stone) Radiology Impression Discussion of test interpretation with radiology: I have reviewed the radiologist's reading. Independent Historian Clinical information obtained from an independent historian. History obtained from or confirmed by: Spouse External Record Review External record reviewed: Outpatient record, Prior outpatient labs and Prior outpatient radiology Discharge Plan Discharge Clinical Impression: Bacteremia, Pyelonephritis Patient Disposition: Admitted As Inpatient Print Language: Romanian
[2025-09-08 11:54] LABS: MANUAL DIFF FLAG NO
[2025-09-08 11:59] LABS: Hematocrit 33.6 % (37.0-47.0); Hemoglobin 10.9 g/dl (12.0-16.0); Imm Gran Abs Auto 0.03 X10*3/uL (0.00-0.03); Imm Gran Pct Auto 0.3 % (0.0-0.4); Lymphocytes Absolute Auto 2.0 X10*3/uL (1.2-4.9); Mean Corpuscular HGB Conc 32.4 g/dl (31.0-35.0); Mean Corpuscular Hemoglobin 30.2 pg (27.0-33.0); Mean Corpuscular Volume 93.1 fL (80.0-98.0); NRBC Abs Auto 0.000 X10*3/uL (0.0-0.012); NRBC Pct Auto 0.0 /100WBC (0.0-0.2); Platelet Count 218 X10*3/uL (160-400); Red Blood Count 3.61 X10*6/uL (4.20-5.50); White Blood Count 11.3 X10*3/uL (4.8-10.8)
[2025-09-08 12:15] LABS: Alanine Aminotransferase 47 U/L (0-31); Albumin Level 4.4 g/dL (3.5-5.0); Alkaline Phosphatase 99 U/L (39-117); Anion Gap 9 (12-20); Aspartate Amino Transferase 57 U/L (5-31); Blood Urea Nitrogen 15 mg/dL (9-16); Calcium 10.1 mg/dL (8.4-10.2); Carbon Dioxide 23 mmol/L (22-29); Chloride 109 mmol/L (96-108); Creatinine Clr Calc Pharmacy 111.4; Estimated Glomerular Filt Rate > 60; Magnesium 1.6 mg/dL (1.6-2.6); Potassium 3.4 mmol/L (3.3-5.1); Sodium 138 mmol/L (135-145); Total Protein 7.3 g/dL (6.5-8.0)
[2025-09-08] MEDS: 0.9 % Sodium Chloride Flush 3 ML SYRINGE IVFLUSH (15:06)
--- NOTE | 2025-09-08 15:30 | PC.NURSE ---
pt brought from main ed to OF bed 5, pt a&ox3, ambulatory with steady gait, presently denying pain/discomfort, rr equal/non labored, vitals stable, family at bedside, call munoz within reach, plan of care ongoing
--- NOTE | 2025-09-08 15:37 | PC.NURSE ---
pharmacy called to do pts med req
--- NOTE | 2025-09-08 15:53 | HO.NURTONUR ---
patient a&ox3, ambulatory with steady gait, was seen here in the ED yesterday dx with a UTI and discharged. She was called to return for + blood cultures. rr equal/non labored, 20G to rt hand, wbc 11.3, ast 57. alt 47. Denies pain/discomfort. Pharmacy is working on her med req they just came to speak with her about it. She is concerned about not having her night meds ordered as of yet.
--- NOTE | 2025-09-08 16:11 | PHA.MEDREC ---
Addendum entered by Nimco Calhoun [facility] 09/09/25 12:46: Tried contacting [facility] but was unsuccessful. Dr. Santillan notified . Addendum entered by Beny Leigh, [facility] 09/08/25 16:22: med rec reviewed Original Note: Pharmacy Consult ? Medication Reconciliation Pharmacy has completed the medication reconciliation. Spoke with pt and pt family at bedside who was able to confirm pt medications. Pt visiting from [place] but states she gets Lipator 40mg QD, Plavix 75mg QD and Aspirin 81mg QD tabs filled from pharmacy over there ([facility] [phone]). I called [facility] and was hung up on after being put on hold for a bit; I added meds pt and family verbally confirmed with me to pt med rec since pt and family were adamant about pt taking these meds and doses they gave me.
--- NOTE | 2025-09-08 16:23 | P.HPHOSP_ITS ---
History of Present Illness Date of Service: 09/08/25 Chief Complaint: Right flank pain 55-year-old female with past medical history of asthma, GERD, August 22 was seen for left-sided renal colic in [place] but no procedures were done. She is here traveling as she lives in [place] and was visiting family in [place]. who was just seen and treated in our facility with cephalexin for positive UTI. She had presented with fevers/rigors up to 103. Her urine was grossly positive. She also had chest x-ray that was normal. She does have right flank pain as well as urinary symptoms. Call to return to ER for 1/ g negative rods in her blood culture Review of Systems 2 Review of Systems: Denies chest pain Denies shortness of breath Denies nausea it is right flank Admits fever and rigors PMFSH Medical History Seasonal allergies IBS (irritable bowel syndrome) History of positive PPD Asthma Surgical History History of foot surgery [place] teeth extracted Hx of hemorrhoidectomy Hx of tubal ligation Social History Patient Tobacco Use Status: Never used Tobacco Smoked in Last 30 Days: No Use of substances other than those prescribed or required for medical reasons: No Advance Directives: No Advance Directives Information Provided: Yes Do you have a plan to hurt others: No Plan Patient : No Meds Allergies Allergy/AdvReac Type Severity Reaction Status Date / Time latex Allergy Intermediate Rash Verified 09/08/25 11:24 Osneayssc-Mmiabymd-Wnl Allergy Intermediate Shakiness Uncoded 09/08/25 11:24 Sudafed Allergy Intermediate Shakiness Uncoded 09/08/25 11:24 Active Medications: Current Medications Acetaminophen (Acetaminophen 325 Mg Tablet) 650 mg PO Q6H PRN PRN Reason: Pain, Mild 1-3,fever,headache Atorvastatin Calcium (Atorvastatin Calcium 40 Mg Tablet) 40 mg PO DAILY [facility] Calcium Carbonate (Calcium Carbonate 750 Mg Tab.Chew) 750 mg PO Q4H PRN PRN Reason: Heartburn Clopidogrel Bisulfate (Clopidogrel Bisulfate 75 Mg Tablet) 75 mg PO DAILY [facility] Ceftriaxone Sodium 1 gm/ (Sodium Chloride) 50 mls @ 100 mls/hr IV Q24H [facility] Lactated Ringer's (Lr) 1,000 mls @ 125 mls/hr IVCONT .Q8H [facility] Magnesium Hydroxide (Milk Of Magnesia 30 Ml Oral.Susp) 30 ml PO DAILY PRN PRN Reason: Constipation Melatonin (Melatonin 3 Mg Tablet) 6 mg PO BEDTIME PRN PRN Reason: Insomnia Multivitamins/Vitamin C (Multivitamin Tablet) 1 tab PO DAILY [facility] Non-Formulary Medication (Aspirin) 81 mg PO DAILY [facility] Ondansetron HCl (Ondansetron Hcl 4 Mg/2 Ml Vial) 4 mg IVPUSH Q8H PRN PRN Reason: Nausea and Vomiting Sodium Chloride (0.9 % Sodium Chloride Flush 3 Ml Syringe) 3 ml IVFLUSH QSHIFT [facility] Last Admin: 09/08/25 15:06 Dose: 3 ml Home Medications ?Medication ?Instructions ?Recorded ?Confirmed ?Last Taken ?Type aspirin 81 mg tablet 81 mg PO DAILY 09/08/2508/2209/07/25 History atorvastatin 40 mg tablet (Lipitor) 40 mg PO DAILY 09/08/25 09/07/25 History clopidogrel 75 mg tablet (Plavix) 75 mg PO DAILY 09/0809/08/25 09/07/25 History inulin-sorbitol 2 gram chewable 1 tab PO DAILY 5 09/08/25 09/07/25 History tablet (Fiber Supplement (inulin)) multivitamin with minerals 1 tab PO DAILY 09/08/2509/07/25 History Physical Exam 2 Vital Signs and Narrative: Vital Signs: Last Vital Signs Temp 98.3 F 09/08/25 11:21 Pulse 77 09/08/25 11:21 Resp 18 09/08/25 11:21 BP 113/65 09/08/25 11:21 Pulse Ox 97 09/08/25 11:21 O2 Del Method Room Air 09/08/25 11:21 BMI result Body Mass Index 34.3 Const: Other: Awake alert no acute distress Resp: Other: Clear to auscultation bilaterally no rales rhonchi or wheezes Cardio: Other: No S4; positive S1-S2; no S3 murmurs rubs or gallops GI: Other: Soft nontender nondistended normoactive bowel sounds Back/Spine/Pelvis: Other: Mild right CVA tenderness Extrem: Other: No edema bilaterally Results Labs 09/08/25 11:45 09/08/25 11:45 Labs: Laboratory Results - last 24 hr 09/08/25 11:45 MCV 93.1 MCH 30.2 MCHC 32.4 RDW 12.8 Plt Count 218 MPV 10.4 Immature Gran % (Auto) 0.3 Neut % (Auto) 74.9 H Lymph % (Auto) 17.4 L [place] % (Auto) 5.8 Eos % (Auto) 1.2 Baso % (Auto) 0.4 Lymph # (Auto) 2.0 [place] # (Auto) 0.7 Eos # (Auto) 0.1 Baso # (Auto) 0.1 Abs Immat Gran (auto) 0.03 Absolute Neuts (auto) 8.5 H Absolute Nucleated RBC 0.000 Nucleated RBC % (auto) 0.0 Anion Gap 9 L Estim Creat Clear Calc 111.4 Estimated GFR > 60 Random Glucose 133 H Lactic Acid 1.1 Calcium 10.1 Magnesium 1.6 Total Bilirubin 1.4 H Direct Bilirubin 0.4 AST 57 H ALT 47 H Alkaline Phosphatase 99 Total Protein 7.3 Albumin 4.4 Imaging Radiologist's Impressions: Impressions Abdomen/Pelvis CT 09/08/25 12:27 IMPRESSION: Bilateral nonobstructing nephrolithiasis. Probable uterine fibroids. Nonspecific prominent lymph nodes. Spondylosis, L4-5 and L5-S1.. Fleischner guidelines were followed. Electronically signed by: Luc Pierce MD 09/08/2025 01:03 PM [facility] [place] and Plan (1) Bacteremia: Status: Acute (2) UTI (urinary tract infection): Qualifiers: Urinary tract infection type: site unspecified Hematuria presence: w ithout hematuria Qualified Code(s): N39.0 - Urinary tract infection, site not specified Status: Acute (3) History of CVA (cerebrovascular accident): Status: Acute Plan 55-year-old female with a past medical history of asthma and old CVA presented initially in [place] for left-sided renal colic. No treatment underwent. She was seen in the ER last evening and today developed fever and shakes with fevers to 103. Blood cultures came back with 1 bottle Gram-negative rods. 1. UTI/bacteremia (Gram-negative rods) -ceftriaxone (1) -urine and blood re-cultured -further treatment based on forthcoming data 2. History of CVA -continue aspirin/Plavix/statin Lovenox Full code Patient will least 2 midnights going forward of inpatient stay to treat UTI/bacteremia that has failed outpatient therapy. This can not be achieved a lesser acute setting Quality Stroke Does the patient have a stroke diagnosis?: No VTE Prior VTE?: No VTE Risk Level:: Medical - moderate - high VTE Device Contraindication: Treatment Not Indicated VTE Drug Contraindication: N/A - Med Ordered
[2025-09-08 16:41] VITALS: BMI 36.9
[2025-09-08 16:44] VITALS: BP 124/78; PULSE 71; RESP 18; TEMP 36.7; O2SAT 97
[2025-09-08] MEDS: Lactated Ringers 1,000 ML 125 ML IVCONT (17:09)
[2025-09-08 19:25] VITALS: BP 120/68; PULSE 96; RESP 17; TEMP 36.7; O2SAT 97
[2025-09-08] MEDS: oxyCODONE HCl Immed Release 5 MG TABLET PO (21:21)
[2025-09-09] MEDS: Lactated Ringers 1,000 ML 125 ML IVCONT ×2 (00:01→06:21)
[2025-09-09 03:34] VITALS: BP 140/74; PULSE 89; RESP 18; TEMP 37.1; O2SAT 95
[2025-09-09 06:00] LABS: MANUAL DIFF FLAG NO
[2025-09-09 06:07] LABS: Hematocrit 31.0 % (37.0-47.0); Hemoglobin 10.0 g/dl (12.0-16.0); Imm Gran Abs Auto 0.02 X10*3/uL (0.00-0.03); Imm Gran Pct Auto 0.3 % (0.0-0.4); Lymphocytes Absolute Auto 1.1 X10*3/uL (1.2-4.9); Mean Corpuscular HGB Conc 32.3 g/dl (31.0-35.0); Mean Corpuscular Hemoglobin 29.7 pg (27.0-33.0); Mean Corpuscular Volume 92.0 fL (80.0-98.0); NRBC Abs Auto 0.000 X10*3/uL (0.0-0.012); NRBC Pct Auto 0.0 /100WBC (0.0-0.2); Platelet Count 180 X10*3/uL (160-400); Red Blood Count 3.37 X10*6/uL (4.20-5.50); White Blood Count 6.5 X10*3/uL (4.8-10.8)
[2025-09-09 06:23] LABS: Alanine Aminotransferase 50 U/L (0-31); Albumin Level 3.8 g/dL (3.5-5.0); Alkaline Phosphatase 76 U/L (39-117); Anion Gap 10 (12-20); Aspartate Amino Transferase 50 U/L (5-31); Blood Urea Nitrogen 13 mg/dL (9-16); Calcium 8.7 mg/dL (8.4-10.2); Carbon Dioxide 24 mmol/L (22-29); Chloride 107 mmol/L (96-108); Creatinine Clr Calc Pharmacy 125.6; Estimated Glomerular Filt Rate > 60; Potassium 3.9 mmol/L (3.3-5.1); Sodium 137 mmol/L (135-145); Total Protein 6.5 g/dL (6.5-8.0)
[2025-09-09 07:42] VITALS: BP 116/59; PULSE 86; RESP 16; TEMP 36.6; O2SAT 94
[2025-09-09] MEDS: Aspirin Enteric Coated 81 MG TABLET.DR PO (09:06)
[2025-09-09] MEDS: 0.9 % Sodium Chloride Flush 3 ML SYRINGE IVFLUSH ×3 (09:07→23:33)
--- NOTE | 2025-09-09 11:00 | MHC.CM.PN ---
DX UTI failed out patient. Patient called to return r/t Blood culture+ Lives with in [place]. visiting family in [facility]. She is independent with all functional mobility DP home self care private transport
--- NOTE | 2025-09-09 13:03 | HO.PM.IMPN ---
Subjective Subjective Date of Service: 09/09/25 Interval History: Remains afebrile. Notes mild headache otherwise no acute issues Review of Systems Denies chest pain Denies shortness of breath Denies nausea it is right flank Admits fever and rigors Physical Exam Vital Signs: Vital Signs: Last Vital Signs Temp 98 F 09/09/25 07:42 Pulse 86 09/09/25 07:42 Resp 16 09/09/25 07:42 BP 116/59 L 09/09/25 07:42 Pulse Ox 94 09/09/25 07:42 O2 Del Method Room Air 09/09/25 07:42 BMI result Body Mass Index 36.9 Const: Other: Awake alert no acute distress Resp: Other: Clear to auscultation bilaterally no rales rhonchi or wheezes Cardio: Other: No S4; positive S1-S2; no S3 murmurs rubs or gallops GI: Other: Soft nontender nondistended normoactive bowel sounds Back/Spine/Pelvis: Other: Mild right CVA tenderness Extrem: Other: No edema bilaterally Objective Data Active Medications Acetaminophen (Acetaminophen 325 Mg Tablet) 650 mg PO Q6H PRN PRN Reason: Pain, Mild 1-3,fever,headache Last Admin: 09/09/25 06:24 Dose: 650 mg Documented By: AMANDA Aspirin (Aspirin Enteric Coated 81 Mg Tablet.) 81 mg PO DAILY [facility] Last Admin: 09/09/25 09:06 Dose: 81 mg Documented By: ARSH Atorvastatin Calcium (Atorvastatin Calcium 40 Mg Tablet) 40 mg PO DAILY [facility] Last Admin: 09/09/25 09:07 Dose: 40 mg Documented By: ARSH Calcium Carbonate (Calcium Carbonate 750 Mg Tab.Chew) 750 mg PO Q4H PRN PRN Reason: Heartburn Clopidogrel Bisulfate (Clopidogrel Bisulfate 75 Mg Tablet) 75 mg PO DAILY [facility] Last Admin: 09/09/25 09:06 Dose: 75 mg Documented By: ARSH Ceftriaxone Sodium 1 gm/ (Sodium Chloride) 50 mls @ 100 mls/hr IV Q24H [facility] Last Infusion: 09/09/25 12:02 Dose: Infused Documented By: ARSH Lactated Ringer's (Lr) 1,000 mls @ 125 mls/hr IVCONT .Q8H [facility] Last Admin: 09/09/25 06:21 Dose: 125 mls/hr Documented By: AMANDA Ceftriaxone Sodium 2 gm/ (Sodium Chloride) 50 mls @ 100 mls/hr IV Q24H [facility] Magnesium Hydroxide (Milk Of Magnesia 30 Ml Oral.Susp) 30 ml PO DAILY PRN PRN Reason: Constipation Melatonin (Melatonin 3 Mg Tablet) 6 mg PO BEDTIME PRN PRN Reason: Insomnia Morphine Sulfate (Morphine Sulfate 4 Mg/Ml Cartridge) 4 mg IVPUSH Q4H PRN; Protocol PRN Reason: Pain, Severe (Pain Scale 7-10) Multivitamins/Vitamin C (Multivitamin Tablet) 1 tab PO DAILY [facility] Last Admin: 09/09/25 09:07 Dose: 1 tab Documented By: ARSH Ondansetron HCl (Ondansetron Hcl 4 Mg/2 Ml Vial) 4 mg IVPUSH Q8H PRN PRN Reason: Nausea and Vomiting Oxycodone HCl (Oxycodone Hcl Immed Release 5 Mg Tablet) 5 mg PO Q4H PRN PRN Reason: Pain, Moderate(Pain Scale 4-6) Last Admin: 09/08/25 21:21 Dose: 5 mg Documented By: BO Comments: per pt request Sodium Chloride (0.9 % Sodium Chloride Flush 3 Ml Syringe) 3 ml IVFLUSH QSHIFT [facility] Last Admin: 09/09/25 09:07 Dose: 3 ml Documented By: ARSH Labs 09/09/25 05:35 09/09/25 05:35 Labs: Laboratory Results - last 24 hr 09/09/25 05:35 MCV 92.0 MCH 29.7 MCHC 32.3 RDW 12.7 Plt Count 180 MPV 10.5 Immature Gran % (Auto) 0.3 Neut % (Auto) 72.5 Lymph % (Auto) 17.2 L [place] % (Auto) 8.3 Eos % (Auto) 1.2 Baso % (Auto) 0.5 Lymph # (Auto) 1.1 L [place] # (Auto) 0.5 Eos # (Auto) 0.1 Baso # (Auto) 0.0 Abs Immat Gran (auto) 0.02 Absolute Neuts (auto) 4.7 Absolute Nucleated RBC 0.000 Nucleated RBC % (auto) 0.0 Anion Gap 10 L Estim Creat Clear Calc 125.6 Estimated GFR > 60 Random Glucose 115 Calcium 8.7 D Total Bilirubin 0.7 AST 50 H ALT 50 H Alkaline Phosphatase 76 Total Protein 6.5 Albumin 3.8 Assessment and Plan (1) Bacteremia: Status: Acute (2) History of CVA (cerebrovascular accident): Status: Acute Plan 55-year-old female with a past medical history of asthma and old CVA presented initially in [place] for left-sided renal colic. No treatment underwent. She was seen in the ER last evening and today developed fever and shakes with fevers to 103. Blood cultures came back with 1 bottle Gram-negative rods. 1. UTI/bacteremia (Gram-negative rods) -ceftriaxone (2) -urine and blood re-cultured -further treatment based on forthcoming data 2. History of CVA -continue aspirin/Plavix/statin Lovenox Full code Patient requires ongoing hospitalization for IV antibiotics to treat likely bacteremia. Quality Stroke Does the patient have a stroke diagnosis?: No VTE Prior VTE?: No VTE Risk Level:: Medical - moderate - high VTE Device Contraindication: Treatment Not Indicated VTE Drug Contraindication: N/A - Med Ordered
[2025-09-09 15:04] VITALS: BP 139/75; PULSE 90; RESP 17; TEMP 37.5; O2SAT 95
[2025-09-09 18:36] VITALS: TEMP 38.3
[2025-09-09 19:05] VITALS: BP 127/59; PULSE 92; RESP 18; TEMP 38.3; O2SAT 95
[2025-09-09 19:51] VITALS: TEMP 37.2
[2025-09-10 03:30] VITALS: BP 142/74; PULSE 84; RESP 18; TEMP 37.5; O2SAT 96
[2025-09-10 05:36] LABS: MANUAL DIFF FLAG NO
[2025-09-10 05:42] LABS: Hematocrit 30.2 % (37.0-47.0); Hemoglobin 9.7 g/dl (12.0-16.0); Imm Gran Abs Auto 0.02 X10*3/uL (0.00-0.03); Imm Gran Pct Auto 0.4 % (0.0-0.4); Lymphocytes Absolute Auto 1.3 X10*3/uL (1.2-4.9); Mean Corpuscular HGB Conc 32.1 g/dl (31.0-35.0); Mean Corpuscular Hemoglobin 29.6 pg (27.0-33.0); Mean Corpuscular Volume 92.1 fL (80.0-98.0); NRBC Abs Auto 0.000 X10*3/uL (0.0-0.012); NRBC Pct Auto 0.0 /100WBC (0.0-0.2); Platelet Count 180 X10*3/uL (160-400); Red Blood Count 3.28 X10*6/uL (4.20-5.50); White Blood Count 5.2 X10*3/uL (4.8-10.8)
[2025-09-10 06:00] LABS: Alanine Aminotransferase 95 U/L (0-31); Albumin Level 3.9 g/dL (3.5-5.0); Alkaline Phosphatase 92 U/L (39-117); Anion Gap 13 (12-20); Aspartate Amino Transferase 74 U/L (5-31); Blood Urea Nitrogen 8 mg/dL (9-16); Calcium 8.9 mg/dL (8.4-10.2); Carbon Dioxide 24 mmol/L (22-29); Chloride 108 mmol/L (96-108); Creatinine Clr Calc Pharmacy 123.5; Estimated Glomerular Filt Rate > 60; Potassium 3.8 mmol/L (3.3-5.1); Sodium 141 mmol/L (135-145); Total Protein 6.6 g/dL (6.5-8.0)
[2025-09-10 07:56] VITALS: BP 141/82; PULSE 76; RESP 18; TEMP 37.1; O2SAT 95
[2025-09-10] MEDS: 0.9 % Sodium Chloride Flush 3 ML SYRINGE IVFLUSH (08:52)
[2025-09-10] MEDS: Aspirin Enteric Coated 81 MG TABLET.DR PO (08:52)
--- NOTE | 2025-09-10 09:00 | PM.DS ---
DS: Providers Provider Date of Service: 09/10/25 Date of admission: 09/08/25 13:53 Date of discharge: 09/10/25 Primary care physician: Unknown Physician DS: Diagnosis Discharge Diagnosis (1) Bacteremia: Status: Acute (2) History of CVA (cerebrovascular accident): Status: Acute DS: Summary Hospital Course Hospital Course: from initial hpi: 55-year-old female with past medical history of asthma, GERD, August 22 was seen for left-sided renal colic in [place] but no procedures were done. She is here traveling as she lives in [place] and was visiting family in [place]. who was just seen and treated in our facility with cephalexin for positive UTI. She had presented with fevers/rigors up to 103. Her urine was grossly positive. She also had chest x-ray that was normal. She does have right flank pain as well as urinary symptoms. Call to return to ER for 1/ g negative rods in her blood culture hospital course: Patient was admitted for sepsis due to urinary tract infection complicated by E coli bacteremia. Was initially treated with ceftriaxone, however preliminary blood culture results are highly suspicious for ESBL E coli. As patient needs to get back home to [place] she has decided to leave against medical advice she was able to express understanding of the risks of doing so. Prior to discharge was given 1 dose of IV ertapenem inpatient will pursue further care immediately upon arriving in [place]. Final culture results should be followed up as well. For history of CVA was continued on dual antiplatelet and statin. At time of discharge patient is feeling better, T-max in last 24 hours was 100.9. Time Attestation Discharge Coordination Time (in mins): 33 Quality: Safe Use of Opioids Does Pt have an Active Cancer Diagnosis on the Problem List?: No Quality: Stroke Does the patient have a stroke diagnosis?: No Physical Exam Exam: Exam: General: AO X 3, no acute distress Resp: CTA bilateral, no accessory muscles used CVS: S1,S2,RRR GI: soft, non tender, non distended Neuro: motor grossly intact, alert Psych: appropriate affect, appropriate insight Vital Signs: Vital Signs: Last Vital Signs Temp 98.8 F 09/10/25 07:56 Pulse 76 09/10/25 07:56 Resp 18 09/10/25 07:56 BP 141/82 H 09/10/25 07:56 Pulse Ox 95 09/10/25 07:56 O2 Del Method Room Air 09/10/25 07:56 BMI result Body Mass Index 36.9 DS: Data Data Completed and Pending Labs on day of discharge: Laboratory Results - last 24 hr 09/10/25 05:08 WBC 5.2 RBC 3.28 L Hgb 9.7 L Hct 30.2 L MCV 92.1 MCH 29.6 MCHC 32.1 RDW 12.6 Plt Count 180 MPV 10.3 Immature Gran % (Auto) 0.4 Neut % (Auto) 61.1 Lymph % (Auto) 25.4 Stanton % (Auto) 10.9 Eos % (Auto) 1.6 Baso % (Auto) 0.6 Lymph # (Auto) 1.3 Stanton # (Auto) 0.6 Eos # (Auto) 0.1 Baso # (Auto) 0.0 Abs Immat Gran (auto) 0.02 Absolute Neuts (auto) 3.2 Absolute Nucleated RBC 0.000 Nucleated RBC % (auto) 0.0 Sodium 141 Potassium 3.8 Chloride 108 Carbon Dioxide 24 Anion Gap 13 BUN 8 L Creatinine 0.59 Estim Creat Clear Calc 123.5 Estimated GFR > 60 Fasting Glucose 108 H Calcium 8.9 Total Bilirubin 0.6 AST 74 H ALT 95 H Alkaline Phosphatase 92 Total Protein 6.6 Albumin 3.9 Preliminary micro results at discharge 09/08/25 11:57 Blood Culture - Preliminary Blood - Venous No growth after 24 hours. 09/08/25 11:45 Blood Culture - Preliminary Blood - Venous No growth after 24 hours. Discharge Plan Discharge Anticipated Discharge Date/Time: 09/10/25 08:57 Patient Disposition: Left Against Medical Advice Discharge Diagnosis: esbl bacteremia Referrals: Physician,Unknown J [Primary Care Provider, Medical] - 1 Week Discharge Medications: No Action atorvastatin [Lipitor] 40 mg Tablet 40 mg PO DAILY clopidogrel [Plavix] 75 mg Tablet 75 mg PO DAILY aspirin 81 mg Tablet 81 mg PO DAILY multivitamin with minerals Tablet 1 tab PO DAILY Fiber Supplement (inulin) 2 gram Tablet,Chewable 1 tab PO DAILY Discharge Orders: Discharge Order (Routine); Ordered 09/10/25 Ordered By: Hua Minor Diet: Advance to usual diet Activity on Discharge: As tolerated Print Language: Divehi Care Plan Goals: recovery Health Concerns: esbl ecoli bacteremia, uti Plan of Treatment: follow up final culture results, 10-14 days of IV ertapenem Assessment: see above
--- NOTE | 2025-09-10 09:44 | MHC.CM.PN ---
Patient is discharged to home self care today. Her spouse will provide transportation home.
[2025-09-10] MEDS: Butalb/Acetamin/Caff 50/325/40 TABLET 1 TAB PO (09:50)
== END 2025-09-10 10:03 | disposition left against medical advice (07) | DRG 463 ==
LOC: HO.ED 11:51 → HO.EDOVER 13:57 → HO.S3 15:48
PROVIDERS: Admitting Provider Hospitalist; Emergency Provider Emergency Medicine; Visit Provider Internal Medicine
DX: N39.0 Urinary tract infection, site not specified (principal); R78.81 Bacteremia; B96.20 Unspecified Escherichia coli [E. coli] as the cause of diseases classified elsewhere; Z16.12 Extended spectrum beta lactamase (ESBL) resistance; Z79.02 Long term (current) use of antithrombotics/antiplatelets; Z79.4 Long term (current) use of insulin; Z86.73 Personal history of transient ischemic attack (TIA), and cerebral infarction without residual deficits; Z79.82 Long term (current) use of aspirin; Z79.899 Other long term (current) drug therapy
CPT/HCPCS: 36415; 74176; 80048; 80053; 80076; 83605; 83735; 85025; 87040; 99221; 99285; J0696; J1335; J1885; J7120

== ENCOUNTER → 2025-09-08 11:29 | Outpatient (BNV) | payer MEDICAID, SELFPAY | PROVIDERS: Admitting Provider Hospitalist; Emergency Provider Emergency Medicine; Visit Provider Radiology Diagnostic Radiology | DX: N20.0 Calculus of kidney (principal); M47.817 Spondylosis without myelopathy or radiculopathy, lumbosacral region | CPT/HCPCS: 74176 ==

== ENCOUNTER → 2025-09-08 13:53 | Outpatient (BNV) | payer MEDICAID, SELFPAY | PROVIDERS: Admitting Provider Hospitalist; Emergency Provider Emergency Medicine; Visit Provider Hospitalist | DX: R78.81 Bacteremia (principal); Z86.73 Personal history of transient ischemic attack (TIA), and cerebral infarction without residual deficits | CPT/HCPCS: 99223; 99232; 99239 ==